=== PATIENT | male | born 1965 | race American Indian/Alaskan Native ===

== ENCOUNTER 2017-08-03 12:43 | Emergency (ER) | payer OTHER ==
[2017-08-03 13:01] VITALS: BP 125/80
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
== END 2017-08-03 15:39 | disposition home or self-care (01) ==
LOC: ED 12:43
DX: Z76.0 Encounter for issue of repeat prescription (principal); I10 Essential (primary) hypertension; E78.5 Hyperlipidemia, unspecified
CPT/HCPCS: 99281